=== PATIENT | female | born 1945 ===

== ENCOUNTER 2019-01-12 08:09 | Day surgery (SDC) | payer MEDICARE ==
[2019-01-12 08:40] VITALS: BMI 25.8
[2019-01-12] MEDS ORDERED: Lactated Ringer's 500 ML IV ONE (08:53)
[2019-01-12] MEDS ORDERED: Midazolam 2 MG/2 ML VIAL ONE (10:00)
[2019-01-12] MEDS ORDERED: Propofol 10 mg/ml Inj (20 ML) ONE (10:00)
[2019-01-12] MEDS ORDERED: ePHEDrine 50 mg/ml Inj ONE (10:49)
[2019-01-12 11:09] VITALS: TEMP 98
[2019-01-12 11:26] VITALS: BP 112/60; PULSE 86; RESP 23; O2SAT 99
== END 2019-01-12 13:39 | disposition home or self-care (01) ==
LOC: H.ENDO 08:09
PROVIDERS: ATTEND Internal Medicine Gastroenterology
DX: K29.50 Unspecified chronic gastritis without bleeding (principal); E11.9 Type 2 diabetes mellitus without complications; E78.5 Hyperlipidemia, unspecified; I10 Essential (primary) hypertension; K64.8 Other hemorrhoids; D50.9 Iron deficiency anemia, unspecified; K57.30 Diverticulosis of large intestine without perforation or abscess without bleeding; K31.89 Other diseases of stomach and duodenum
CPT/HCPCS: 43239; 45378; 82948; 88305; J2001; J2250; J2704; J7120